=== PATIENT | male | born 1995 | race African-American/Black ===

== ENCOUNTER 2018-05-12 20:49 | Emergency (ER) | payer BC, SELFPAY ==
--- NOTE | 2018-05-12 21:51 | ER ---
Nurse's Notes [facility] Name: Brody Strickland Age: 22 yrs Sex: Male : 1995 Arrival Date: 05/12/2018 Time: 20:55 Bed 16 Private MD: Diagnosis: Contusion of right hip;Pseudofolliculitis barbae Presentation: 05/12 21:00 Presenting complaint: Patient states: I HAVE BUMPS FROM SHAVING AND NEED A SHAVING PASS bp FOR WORK. Transition of care: patient was not received from another setting of care. Onset of symptoms is unknown. Risk Assessment: Do you want to hurt yourself or someone else? Patient reports no desire to harm self or others. Initial Sepsis Screen: Does the patient meet any 2 criteria? No. Patient's initial sepsis screen is negative. Does the patient have a suspected source of infection? No. Patient's initial sepsis screen is negative. Care prior to arrival: None. 21:00 Method Of Arrival: Ambulatory bp 21:00 Acuity: CHICO 5 bp Triage Assessment: 21:00 General: Appears in no apparent distress. comfortable, Behavior is calm, cooperative, bp appropriate for age. Pain: Denies pain. Musculoskeletal: Circulation, motion, and sensation intact. Range of motion: intact in all extremities. Historical: - Allergies: 21:33 No Known Allergies; bp - Home Meds: 21:33 None [Active]; bp - PMHx: 21:33 None; bp - Immunization history:: Adult Immunizations up to date. - Social history:: Smoking status: Patient/guardian denies using tobacco. - Ebola Screening: : Patient negative for fever greater than or equal to 101.5 degrees Fahrenheit, and additional compatible Ebola Virus Disease symptoms Patient denies exposure to infectious person Patient denies travel to an Ebola-affected area in the 21 days before illness onset No symptoms or risks identified at this time. Screenin:35 Abuse screen: Denies threats or abuse. Denies injuries from another. Nutritional bp screening: No deficits noted. Tuberculosis screening: No symptoms or risk factors identified. Fall Risk None identified. Assessment: 21:35 General: SEE TRIAGE NOTE. Neuro: Level of Consciousness is awake, alert, obeys bp commands, Oriented to person, place, time, situation, Appropriate for age. 22:12 Reassessment: PT D/C HOME AMBULATORY, DX WITH PSEUDOFOLLICULITIS BARBAE, GIVEN WORK bp NOTE FOR NO SHAVING x1 WK. PT INSTRUCTED TO F/U WITH PCP. Vital Signs: 21:00 BP 129 / 82; Pulse 53; Resp 16; Temp 98.1; Pulse Ox 100% ; Weight 70.31 kg; Height 5 bp ft. 6 in. (167.64 cm); 21:00 Body Mass Index 25.02 (70.31 kg, 167.64 cm) bp ED Course: 20:55 Patient arrived in ED. ds1 21:00 Arm band placed on right wrist. bp 21:15 Wil Milton NP is PHCP. pm1 21:15 Christian Sibley MD is Attending Physician. pm1 21:15 Keenan Cruz, RN is Primary Nurse. bp 21:33 Triage completed. bp 21:35 Patient has correct armband on for positive identification. Bed in low position. Call bp light in reach. 22:13 No provider procedures requiring assistance completed. Patient did not have IV access bp during this emergency room visit. Administered Medications: No medications were administered Outcome: 21:50 Discharge ordered by . pm1 22:13 Discharged to home ambulatory. bp 22:13 Condition: stable 22:13 Discharge instructions given to patient, Instructed on discharge instructions, follow up and referral plans. medication usage, Demonstrated understanding of instructions, follow-up care, medications, Prescriptions given X 1. 22:13 Patient left the ED. bp Signatures: Bel Alonzo ds1 Wil Milton NP COVERED BUCKLE ASSEMBLER pm1 Keenan Cruz, RN RN bp
--- NOTE | 2018-05-12 21:51 | EDPHYS ---
Physician Documentation [facility] Name: Brody Strickland Age: 22 yrs Sex: Male : 1995 Arrival Date: 05/12/2018 Time: 20:55 Bed 16 Private MD: ED Physician Christian Sibley HPI: 05/12 21:46 This 22 yrs old Black Male presents to ER via Ambulatory with complaints of Hip Pain, pm1 Facial Pain. 21:46 Patient was playing [employer] yesterday and was checked in the right hip with an elbow. pm1 Patient reports pain on ly present to right hip with palpation. No pain present with movement. However, this is not he patient's main complaint. Patient shaved his dolan off two days ago and used a new shaving cream. He started having a raised rash with pustules. He works for the [employer] and needs an excuse to not shave until his rash improves. Historical: - Allergies: 21:33 No Known Allergies; bp - Home Meds: 21:33 None [Active]; bp - PMHx: 21:33 None; bp - Immunization history:: Adult Immunizations up to date. - Social history:: Smoking status: Patient/guardian denies using tobacco. - Ebola Screening: : Patient negative for fever greater than or equal to 101.5 degrees Fahrenheit, and additional compatible Ebola Virus Disease symptoms Patient denies exposure to infectious person Patient denies travel to an Ebola-affected area in the 21 days before illness onset No symptoms or risks identified at this time. ROS: 21:46 Constitutional: Negative for fever, chills, and weight loss, Eyes: Negative for injury, pm1 pain, redness, and discharge, ENT: Negative for injury, pain, and discharge, Neck: Negative for injury, pain, and swelling, Cardiovascular: Negative for chest pain, palpitations, and edema, Respiratory: Negative for shortness of breath, cough, wheezing, and pleuritic chest pain, Abdomen/GI: Negative for abdominal pain, nausea, vomiting, diarrhea, and constipation, Back: Negative for injury and pain, MS/Extremity: Negative for injury and deformity. 21:46 Skin: Positive for rash, of the face. Exam: 21:46 Constitutional: This is a well developed, well nourished patient who is awake, alert, pm1 and in no acute distress. Head/Face: Normocephalic, atraumatic. Chest/axilla: Normal chest wall appearance and motion. Nontender with no deformity. No lesions are appreciated. Cardiovascular: Regular rate and rhythm with a normal S1 and S2. No gallops, murmurs, or rubs. Normal PMI, no JVD. No pulse deficits. Respiratory: Lungs have equal breath sounds bilaterally, clear to auscultation and percussion. No rales, rhonchi or wheezes noted. No increased work of breathing, no retractions or nasal flaring. Abdomen/GI: Soft, non-tender, with normal bowel sounds. No distension or tympany. No guarding or rebound. No evidence of tenderness throughout. Back: No spinal tenderness. No costovertebral tenderness. Full range of motion. 21:46 MS/ Extremity: Pulses equal, no cyanosis. Neurovascular intact. Full, normal range of motion. 21:46 Skin: Appearance: normal except for affected area, consistent with psuedofolliculitis barbae. 21:46 Neuro: Orientation: is normal, Mentation: is normal, Motor: is normal, Gait: is steady, at a normal pace, without difficulty. Vital Signs: 21:00 BP 129 / 82; Pulse 53; Resp 16; Temp 98.1; Pulse Ox 100% ; Weight 70.31 kg; Height 5 bp ft. 6 in. (167.64 cm); 21:00 Body Mass Index 25.02 (70.31 kg, 167.64 cm) bp MDM: 21:23 Patient medically screened. pm1 21:46 Data reviewed: vital signs. Data interpreted: Pulse oximetry: on room air is 100 %. pm1 Interpretation: normal. 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 Administered Medications: No medications were administered Disposition: 05/13 04:22 Co-signature as Attending Physician, Christian Sibley MD I agree with the assessment and ps1 plan of care. Disposition: 05/12/18 21:50 Discharged to Home. Impression: Pseudofolliculitis barbae, Contusion of right hip. - Condition is Stable. - Discharge Instructions: Contusion, Ingrown Hair. - Prescriptions for Tetracycline 500 mg Oral Capsule - take 1 capsule by ORAL route every 12 hours for 14 days; 28 capsule. - Medication Reconciliation Form, Thank You Letter, Antibiotic Education, Work release form form. - Follow up: Emergency Department; When: As needed; Reason: Worsening of condition. Follow up: Private Physician; When: 2 - 3 days; Reason: Recheck today's complaints, Continuance of care, Re-evaluation by your physician. - Problem is new. - Symptoms have improved. Signatures: Wil Milton NP UPPER DOUBLER pm1 Keenan Cruz RN RN bp Christian Sibley MD MD ps1 Corrections: (The following items were deleted from the chart) 05/12 22:13 21:50 05/12/2018 21:50 Discharged to Home. Impression: Pseudofolliculitis bp barbaeContusion of right hip. Condition is Stable. Forms are Work release form, Medication Reconciliation Form, Thank You Letter, Antibiotic Education, Prescription Opioid Use. Follow up: Emergency Department; When: As needed; Reason: Worsening of condition. Follow up: Private Physician; When: 2 - 3 days; Reason: Recheck today's complaints, Continuance of care, Re-evaluation by your physician. Problem is new. Symptoms have improved. pm1
== END 2018-05-12 22:13 | disposition home or self-care (01) ==
LOC: ER 20:49
DX: S70.01XA Contusion of right hip, initial encounter (principal); L73.1 Pseudofolliculitis barbae; W50.0XXA Accidental hit or strike by another person, initial encounter; Y93.66 Activity, soccer; Y92.89 Other specified places as the place of occurrence of the external cause
CPT/HCPCS: 99282